=== PATIENT | female | born 1970 | race Caucasian/White ===

== ENCOUNTER 2018-10-24 22:34 | Emergency (ER) | payer SELFPAY ==
[2018-10-24 23:00] VITALS: BP 115/69; PULSE 75; RESP 16; TEMP 98.8; O2SAT 98
[2018-10-25 00:40] LABS: BASO # 0.1 K/uL (0.0-0.2); BASO % 0.7 % (0.0-2.0); EOS # 0.3 K/uL (0.0-0.7); EOS % 3.4 % (0.0-4.0); HEMOGLOBIN 13.5 g/dL (12.0-16.0); LYMPH # 2.3 K/uL (1.0-4.3); LYMPH % 28.4 % (20.0-40.0); MEAN CORPUSCULAR HEMOGLOBIN 28.6 pg (27.0-31.0); MEAN CORPUSCULAR HGB CONC 32.5 g/dL (33.0-37.0); MEAN PLATELET VOLUME 9.4 fl (7.2-11.7); MONO # 0.8 K/uL (0.0-0.8); MONO % 10.5 % (0.0-10.0); NEUT # 4.6 K/uL (1.8-7.0); RBC 4.71 Mil/uL (3.80-5.20); RED CELL DISTRIBUTION WIDTH 15.9 % (11.5-14.5); WHITE BLOOD COUNT 8.1 K/uL (4.8-10.8)
[2018-10-25 01:04] LABS: ALB/GLOB RATIO 1.3 (1.0-2.1); ALBUMIN 4.8 g/dL (3.5-5.0); ALT/SGPT 28 U/L (9-52); AST/SGOT 25 U/L (14-36); BLOOD UREA NITROGEN 13 mg/dl (7-17); CALCIUM 9.7 mg/dL (8.4-10.2); GFR NON-AFRICAN AMERICAN > 60
[2018-10-25] MEDS ORDERED: Dexamethasone 10 MG in Sodium Chloride 0.9% 50 ML IV STA (01:58)
[2018-10-25] MEDS ORDERED: Sodium Chloride 0.9% 50 ML IV ONE (03:11)
[2018-10-25] MEDS ORDERED: Iohexol 300 100 ML IJ ONE (03:11)
--- NOTE | 2018-10-25 05:43 | ED PDOC ---
HPI: General Adult Time Seen by Provider: 10/24/18 23:06 Chief Complaint (Nursing): ENT Problem Chief Complaint (Provider): Neck Pain History Per: Patient History/Exam Limitations: no limitations Onset/Duration Of Symptoms: Days (one week ) Current Symptoms Are (Timing): Still Present Additional Complaint(s): 47 year old female presents to the ED for an evaluation of swelling to the left side of the neck. Patient states since the past week, she has had left neck swelling that was painful associated with mild throat pain. Otherwise, she denies troubled swallowing, fever, shortness of breath, diarrhea, vomiting, nausea and abdominal pain. PMD: no family provider Past Medical History Reviewed: Historical Data, Nursing Documentation, Vital Signs Vital Signs: Last Vital Signs Temp 98.8 F 10/24/18 22:55 Pulse 75 10/24/18 22:55 Resp 16 10/24/18 22:55 BP 115/69 10/24/18 22:55 Pulse Ox 98 10/24/18 22:55 Primary Care Provider: FAMILY PROVIDER,NO - Medical History PMH: No Chronic Diseases - Family History Family History: States: Diabetes - Immunization History Hx Tetanus Toxoid Vaccination: No Hx Influenza Vaccination: No Hx Pneumococcal Vaccination: No - Home Medications Home Medications: Ambulatory Orders Medication Instructions Recorded Tylenol 02/03/14 Clindamycin [Cleocin] 300 mg PO Q6 #40 cap 10/25/18 - Allergies Allergies/Adverse Reactions: Allergies Allergy/AdvReac Type Severity Reaction Status Date / Time No Known Allergies Allergy Verified 10/24/18 22:55 Review of Systems ROS Statement: Except As Marked, All Systems Reviewed And Found Negative Constitutional: Negative for: Fever ENT: Positive for: Throat Pain (mild) Respiratory: Negative for: Cough, Shortness of Breath Gastrointestinal: Negative for: Nausea, Vomiting, Abdominal Pain, Diarrhea Musculoskeletal: Positive for: Neck Pain Physical Exam - Reviewed Nursing Documentation Reviewed: Yes Vital Signs Reviewed: Yes - Physical Exam Appears: Positive for: Well, Non-toxic, No Acute Distress Head Exam: Positive for: ATRAUMATIC, NORMAL INSPECTION, NORMOCEPHALIC Skin: Positive for: Normal Color, Warm, Dry. Negative for: Rash Eye Exam: Positive for: EOMI, Normal appearance, PERRL ENT: Positive for: Pharynx Is (erythematous ) Neck: Positive for: Painless ROM, Supple. Negative for: Normal, Decreased ROM (Large 5cm by 6 cm anterior cervical lymph node. Mild tenderness, no erythema or warmth ) Cardiovascular/Chest: Positive for: Regular Rate, Rhythm. Negative for: Murmur Respiratory: Positive for: Normal Breath Sounds. Negative for: Decreased Breath Sounds, Wheezing, Respiratory Distress Gastrointestinal/Abdominal: Positive for: Normal Exam, Soft. Negative for: Tenderness Back: Positive for: Normal Inspection Extremity: Positive for: Normal ROM. Negative for: Tenderness, Pedal Edema, Deformity Neurological/Psych: Positive for: Awake, Alert, Normal Tone, Oriented (x3). Negative for: Motor/Sensory Deficits - Laboratory Results Result Diagrams: 10/24/18 23:55 10/24/18 23:55 Lab Results: Total Bilirubin 0.2 mg/dl (0.2-1.3) 10/24/18 23:55 AST 25 U/L (14-36) 10/24/18 23:55 ALT 28 U/L (9-52) 10/24/18 23:55 Alkaline Phosphatase 73 U/L (38-126) 10/24/18 23:55 Total Protein 8.5 G/DL (6.3-8.2) H 10/24/18 23:55 Albumin 4.8 g/dL (3.5-5.0) 10/24/18 23:55 Globulin 3.7 gm/dL (2.2-3.9) 10/24/18 23:55 Albumin/Globulin Ratio 1.3 (1.0-2.1) 10/24/18 23:55 - ECG O2 Sat by Pulse Oximetry: 98 (RA) Pulse Ox Interpretation: Normal Medical Decision Making Medical Decision Making: Time: 2345 Impression: 47yo female with unilateral lymphadenopathy Plan: Neck soft tissue with contrast CT CMP Urine Urine dipstick CBC w/ differential Decadron Inj 10mg Blood culture Heplock insertion Rapid strep group A antigen Patients serology presents positive for infectious mono and group A beta strep Ag 0500 PROCEDURE: CT SOFT TISSUE NECK WITH CONTRAST REASON FOR EXAM: c/o generalized neck discomfort and headeache. left sided neck swelling, ct marker placed in area of interest (Hx) / LEFT SIDED NECK SWELLING (DICOM Hx) TECHNIQUE: The patient was scanned in a multi-detector CT scanner. High resolution transaxial imaging was performed following intravenous administration of contrast material. Sagittal and coronal images were reconstructed. COMPARISON: None. FINDINGS: 3.9x3.2x1.8 cm (craniocaudal, anteroposterior and transverse dimensions respectively) well defined subcutaneous benign and chronic soft tissue lipoma limited to the superficial soft tissues overlying the mid third of the left sternocleidomastoid muscle just below the inferior pole of the left parotid gland. No secondary infiltration of the adjacent muscles, neurovascular structures are impingement on the adjacent glands. Normal bilateral parotid glands. Normal bilateral mica plate layer hand spaces. Normal bilateral parapharyngeal spaces. Normal bilateral carotid spaces. Normal bilateral sublingual and submandibular glands. Normal visualized nasopharynx. Normal retropharyngeal space. Normal perivertebral space. Normal visualized bilateral faucial tonsils. The visualized tongue, tongue base and oropharynx are normal. The visualized cervical lymph nodes (levels I-) are within normal size limits, and maintain normal morphology. There is no demonstrated solid or cystic mass lesion. There is no abnormal contrast enhancement. Normal epiglottis, bilateral vallecula and hypopharynx. The pre-epiglottic and paraglottic adipose spaces are normal. Normal visualized bilateral piriform sinuses, aryepiglottic folds, vocal cords, and arytenoid-cricoid articulations. Normal subglottic trachea. Normal bilateral lobes of the thyroid gland. Normal visualized pulmonary apices. Normal visualized paranasal sinuses. Normal visualized cervical spine. IMPRESSION: Benign superficial subcutaneous soft tissue lipoma in the left lateral aspect of the anterior soft tissues of the neck at the site of the palpable clinical abnormality/CT marker. Electronically signed on October 25, 2018 5:00:31 AM EDT by: Rufus Echeverria M.D., Certified by ABR, MSK, Neuroradiology 0500 Upon provider reevaluation patient is feeling better, is medically stable, and requires no further treatment in the ED at this time. Patient will be discharged diagnosed with mononucleosis and strep pharyngitis Scribe Attestation: Documented by Kimberly Masters, acting as a scribe for Terrence Baker MD Provider Scribe Attestation: All medical record entries made by the Scribe were at my direction and personally dictated by me. I have reviewed the chart and agree that the record accurately reflects my personal performance of the history, physical exam, medical decision making, and the department course for this patient. I have also personally directed, reviewed, and agree with the discharge instructions and disposition. Disposition - Clinical Impression Clinical Impression: Mononucleosis, Strep pharyngitis - Patient ED Disposition Is Patient to be Admitted: No - Disposition Referrals: [facility] [Outside] Krystian Wilhelm MD [Staff Provider] - Disposition: Routine/Home Disposition Time: 05:00 Condition: STABLE Prescriptions: Clindamycin [Cleocin] 300 mg PO Q6 #40 cap Instructions: Mononucleosis, Strep Throat (DC) Forms: [employer] (Sami) Print Language: SAMMARINESE
--- NOTE | 2018-10-25 15:51 | CT ---
Date of service: 10/25/2018 PROCEDURE: CT NECK WITH CONTRAST HISTORY: Left neck glandular swelling COMPARISON: None available. TECHNIQUE: CT of the neck with intravenous contrast. Coronal and sagittal reformats generated. Intravenous contrast dose: Radiation dose: Total exam DLP = 264.95 mGy-cm. This CT exam was performed using one or more of the following dose reduction techniques: Automated exposure control, adjustment of the mA and/or kV according to patient size, and/or use of iterative reconstruction technique. FINDINGS: Note that a small BB marker was placed over the perceived area of abnormality left upper/mid neck region at the level of the angle of the mandible NASOPHARYNX: Unremarkable. SUPRAHYOID NECK: Unremarkable oropharynx, oral cavity, parapharyngeal space and retropharyngeal space. INFRAHYOID NECK: Unremarkable larynx, hypopharynx, and supraglottic space. Vocal cords intact. MASS: None. GLANDS: Parotid and submandibular glands unremarkable. Normal size thyroid gland, without nodule. LYMPH NODES: Normal. No lymphadenopathy. CERVICAL SPINE: No fracture or focal lesion. VASCULAR STRUCTURES: Unremarkable. OTHER FINDINGS: Apparent lipoma measuring approximately 3.3 x 1.9 x 2.3 cm left aspect of the neck abutting the left posterolateral margin of the left submandibular gland and anterior margin of the left sternocleidomastoid muscle. IMPRESSION: Small lipoma seen within the left aspect of the neck abutting the left posterolateral submandibular gland and anterior margin of the sternocleidomastoid muscle
== END 2018-10-25 05:52 | disposition home or self-care (01) ==
LOC: H.ER 22:34
DX: J02.0 Streptococcal pharyngitis (principal); B27.90 Infectious mononucleosis, unspecified without complication
CPT/HCPCS: 70491; 80053; 81025; 85025; 86308; 87040; 87430; 99284; J1100; Q9967